=== PATIENT | female | born 2000 ===

== ENCOUNTER 2021-05-31 08:34 | Emergency (ER) | payer OTHER, SELFPAY ==
[~2021-05-31] VITALS: Ht 152.4 cm; Wt 64.4 kg
[2021-05-31] MEDS ORDERED: ACETAMINOPHEN TAB 650MG DOSE (2X325MG) PO ONE (11:35)
[2021-05-31] MEDS ORDERED: NS 1,000 ML IV ONE (11:35)
[2021-05-31] MEDS ORDERED: ONDANSETRON 4MG/2ML VIAL IV ONE (11:35)
[2021-05-31 12:15] LABS: BASO % 0.4 % (0.0-1.0); EOS % 0.1 % (0.0-3.0); HEMATOCRIT 42.2 % (36.0-47.0); HEMOGLOBIN 13.1 g/dl (12.0-15.5); LYMPH # 0.7 10^3/uL (1.5-5.0); LYMPH % 8.6 % (24.0-44.0); MEAN CORPUSCULAR HEMOGLOBIN 23.6 pg (27.0-33.0); MONO % 12.8 % (2.0-8.0); NEUTROPHILS # 6.3 10^3/uL (1.5-8.5); NEUTROPHILS % 77.4 % (36.0-66.0); PLATELET COUNT, AUTOMATED 269 10^3/uL (150-450); RED BLOOD COUNT 5.55 10^6/uL (4.00-5.40); WHITE BLOOD COUNT 8.1 10^3/uL (4.0-10.0)
--- NOTE | 2021-05-31 12:29 | REP ---
INDICATION: Coronavirus workup. COMPARISON: No comparison chest x-ray. TECHNIQUE: Portable upright AP chest radiograph. FINDINGS: The lungs are well inflated and free of infiltrate. Pleural angles are sharp. Heart size is normal. Pulmonary vasculature is not increased. IMPRESSION: No active disease. <Electronically signed by Jhon Bernal > 05/31/21 [id number]
[2021-05-31 12:42] LABS: ALBUMIN 4.1 GM/DL (3.2-5.2); ALT/SGPT 36 U/L (12-78); BILIRUBIN,TOTAL 0.4 MG/DL (0.2-1.0); BLOOD UREA NITROGEN 7 MG/DL (7-18); CALCIUM LEVEL 9.1 MG/DL (8.5-10.1); CARBON DIOXIDE LEVEL 20 MEQ/L (21-32); CHLORIDE LEVEL 106 MEQ/L (98-107); CREATININE FOR GFR 0.83 MG/DL (0.55-1.30); GLOMERULAR FILTRATION RATE > 60.0 (>60); GLUCOSE, FASTING 92 MG/DL (70-100); SODIUM LEVEL 135 MEQ/L (136-145); TOTAL PROTEIN 8.8 GM/DL (6.4-8.2)
[2021-05-31] MEDS ORDERED: EPINEPHrine INJ 1 MG/ML 1ML AMP IM PRN (13:40)
[2021-05-31] MEDS ORDERED: ALBUTEROL 90 MCG/ACT 8GM HFA INHALER INH PRN (13:40)
[2021-05-31] MEDS ORDERED: NS 1,000 ML IV SCH (13:40)
[2021-05-31] MEDS ORDERED: diphenhydrAMINE 50MG/ML VIAL (J1200) IV PRN (13:40)
[2021-05-31] MEDS ORDERED: CASIRIVIMAB/IMDEVIMAB 1,200 MG in NS 250 ML IV ONE (13:40)
[2021-05-31] MEDS ORDERED: ALBUTEROL SULFATE 2.5 MG/0.5 ML INH NEB SOLN INH PRN (13:40)
[2021-05-31] MEDS ORDERED: methylPREDNISolone 125MG 2ML VIAL IV PRN (13:40)
--- NOTE | 2021-05-31 15:22 | CR.PDOC ---
General Date of Consultation: May 31, 2021 Consultation REASON FOR CONSULTATION/CHIEF COMPLAINT: Monoclonal antibody treatment for COVID-19 infection HISTORY OF PRESENT ILLNESS: 20-year-old female with no past medical history presented to the ED with 3 days history of cough ,cold ,congestion fever and chills along with nausea, fatigue and weakness. She has a small amount of clear phlegm production. She was found to have COVID-19 positive. Patient lives with her sister and 3 of their kids she reports that all of them have been having allergy symptoms with congestion but she started having sore throat and cough with fever so she came to the emergency room . Her BMI is 27 so she met the criteria for monoclonal antibody administration. The advantages and disadvantages of the monoclonal antibody was discussed with the patient. Side effects were also discussed with the patient and paper was given with full information. Consent was signed. ALLERGIES: Please see below. HOME MEDICATIONS: Please see below. PAST MEDICAL HISTORY: Acne, allergies PAST SURGICAL HISTORY: None FAMILY HISTORY: Sister also has allergies SOCIAL HISTORY: Smoker REVIEW OF SYSTEMS: CONSTITUTIONAL: All 10 point review of systems were negative except as mentioned in HPI. PHYSICAL EXAMINATION: VITAL SIGNS: Please see below. GENERAL APPEARANCE: Awake alert lying in bed in no discomfort HEENT: Normocephalic atraumatic moist mucous membranes anicteric eyes RESPIRATORY: Chest bilateral diffuse fine crackles, no wheezing or rhonchi good air entry CARDIOVASCULAR: S1-S2 normal heart sounds regular no rub murmur gallop ABDOMEN: Obese soft nontender bowel sounds normal EXTREMITIES: No edema SKIN: Erythematous rash on both cheeks and the forehead with some acne likely rosacea LABORATORY DATA: Please see below. ASSESSMENT/PLAN: COVID-19 infection to be given monoclonal antibody Vital Signs/I&O Vital Signs Date Time Temp Pulse Resp B/P (MAP) Pulse Ox O2 Delivery O2 Flow Rate FiO2 05/31/21 11:38 94 18 96 Room Air 05/31/21 08:34 99.1 139/93 (108) Laboratory Data Labs 24H Laboratory Tests 2 05/31/21 11:36: Immature Granulocyte % (Auto) 0.7, Neutrophils (%) (Auto) 77.4H, Lymphocytes (%) (Auto) 8.6L, Monocytes (%) (Auto) 12.8H, Eosinophils (%) (Auto) 0.1, Basophils (%) (Auto) 0.4, Neutrophils # (Auto) 6.3, Lymphocytes # (Auto) 0.7L, Monocytes # (Auto) 1.0H, Eosinophils # (Auto) 0.0, Basophils # (Auto) 0.0, Nucleated Red Bl ood Cells % (auto) 0.0, D-Dimer, Quantitative 409.72, Anion Gap 9, Glomerular Filtration Rate > 60.0, Calcium Level 9.1, Total Bilirubin 0.4, Aspartate Amino Transf (AST/SGOT) 40H, Alanine Aminotransferase (ALT/SGPT) 36, Alkaline Phosphatase 69, C-Reactive Protein, Quantitative 1.90H, Total Protein 8.8H, Albumin 4.1, Albumin/Globulin Ratio 0.9L CBC/BMP Laboratory Tests 05/31/21 11:36 Allergies Coded Allergies: No Known Drug Allergies (Verified Allergy, Unknown, 05/31/21) Home Medications No Active Prescriptions or Reported Meds Emily Colon MD May 31, 2021 15:21
[2021-05-31 15:25] VITALS: BP 126/78
== END 2021-05-31 15:40 | disposition home or self-care (01) ==
LOC: M ED 08:34
DX: U07.1 COVID-19 (principal); F17.210 Nicotine dependence, cigarettes, uncomplicated
CPT/HCPCS: 36415; 71045; 80053; 85025; 85379; 86140; 96361; 96374; 99284; J2405

== ENCOUNTER 2021-05-31 15:56 | Outpatient (CLI) | payer OTHER ==
[~2021-05-31] VITALS: Ht 152.4 cm; Wt 64.4 kg
[2021-05-31 15:40] VITALS: BP 100/57
[~2021-05-31 15:56] MED LIST: ALBUTEROL 90 MCG/ACT 8GM HFA INHALER INH PRN; ALBUTEROL SULFATE 2.5 MG/0.5 ML INH NEB SOLN INH PRN; CASIRIVIMAB/IMDEVIMAB 1,200 MG in NS 250 ML IV ONE; EPINEPHrine INJ 1 MG/ML 1ML AMP IM PRN; NS 1,000 ML IV SCH; diphenhydrAMINE 50MG/ML VIAL (J1200) IV PRN; methylPREDNISolone 125MG 2ML VIAL IV PRN
[2021-05-31] MEDS ORDERED: ACETAMINOPHEN TAB 650MG DOSE (2X325MG) PO ONE (16:00)
[2021-05-31 16:38] VITALS: BP 120/76
[2021-05-31 17:10] VITALS: BP 123/75
[2021-05-31 17:48] VITALS: BP 115/69
[2021-05-31 18:37] VITALS: BP 115/71
== END 2021-05-31 19:45 | disposition home or self-care (01) ==
LOC: M OPCLI4PR 15:56 → M 4MAIN 15:57 → M OPCLI4PR 19:45
PROVIDERS: ATTEND Internal Medicine Nephrology
DX: U07.1 COVID-19 (principal)